=== PATIENT | female | born 1985 | race Two or more races ===

== ENCOUNTER → 2024-12-28 | Outpatient (CLI) | payer OTHER | LOC: M WHC 10:23 | PROVIDERS: ATTEND Obstetrics & Gynecology | DX: O36.5920 Maternal care for other known or suspected poor fetal growth, second trimester, not applicable or unspecified (principal); Z3A.25 25 weeks gestation of pregnancy ==

== ENCOUNTER → 2025-01-04 | Outpatient (CLI) | payer OTHER | LOC: M RAD 09:43 | PROVIDERS: ATTEND Obstetrics & Gynecology | DX: O36.5920 Maternal care for other known or suspected poor fetal growth, second trimester, not applicable or unspecified (principal); Z3A.26 26 weeks gestation of pregnancy ==

== ENCOUNTER → 2025-01-11 | Outpatient (CLI) | payer OTHER | LOC: M RAD 15:10 | PROVIDERS: ATTEND Obstetrics & Gynecology | DX: O36.5930 Maternal care for other known or suspected poor fetal growth, third trimester, not applicable or unspecified (principal); Z3A.27 27 weeks gestation of pregnancy ==

== ENCOUNTER → 2025-01-25 | Outpatient (CLI) | payer OTHER | LOC: M RAD 10:58 | PROVIDERS: ATTEND Obstetrics & Gynecology | DX: O28.8 Other abnormal findings on antenatal screening of mother (principal); Z3A.00 Weeks of gestation of pregnancy not specified ==

== ENCOUNTER → 2025-02-03 | Outpatient (CLI) | payer OTHER | LOC: M WHC 10:55 | PROVIDERS: ATTEND Obstetrics & Gynecology | DX: O36.5990 Maternal care for other known or suspected poor fetal growth, unspecified trimester, not applicable or unspecified (principal) ==

== ENCOUNTER → 2025-02-10 | Outpatient (CLI) | payer OTHER ==
[~2025-02-10] MED LIST: ASPI81TA26 PO; PNV1TABL16 PO; ZYRTTAB8 PO
== END ==
LOC: M WHC 10:56
PROVIDERS: ATTEND Obstetrics & Gynecology
DX: O36.5990 Maternal care for other known or suspected poor fetal growth, unspecified trimester, not applicable or unspecified (principal); Z3A.00 Weeks of gestation of pregnancy not specified

== ENCOUNTER → 2025-02-24 | Outpatient (CLI) | payer OTHER | LOC: M WHC 10:51 | PROVIDERS: ATTEND Obstetrics & Gynecology | DX: O34.211 Maternal care for low transverse scar from previous cesarean delivery (principal); O34.218 Maternal care for other type scar from previous cesarean delivery; O99.213 Obesity complicating pregnancy, third trimester; E66.9 Obesity, unspecified; Z3A.34 34 weeks gestation of pregnancy ==

== ENCOUNTER → 2025-03-03 | Outpatient (CLI) | payer OTHER ==
[~2025-03-03] MED LIST changes: +COLA100C5 PO; +IBUP80TA PO; +PERCOCET PO; +VITA250T27 PO
== END ==
LOC: M WHC 11:01
PROVIDERS: ATTEND Obstetrics & Gynecology
DX: O36.5990 Maternal care for other known or suspected poor fetal growth, unspecified trimester, not applicable or unspecified (principal)
CPT/HCPCS: 76815; 76819; 76820; G0463

== ENCOUNTER → 2025-03-10 | Outpatient (CLI) | payer OTHER ==
[~2025-03-10] MED LIST changes: -COLA100C5 PO; -IBUP80TA PO; -PERCOCET PO
== END ==
LOC: M WHC 11:00
PROVIDERS: ATTEND Obstetrics & Gynecology
DX: O36.5990 Maternal care for other known or suspected poor fetal growth, unspecified trimester, not applicable or unspecified (principal)

== ENCOUNTER → 2025-03-14 | Outpatient (REF) | payer OTHER ==
[~2025-03-14] MED LIST changes: +COLA100C5 PO; +IBUP80TA PO; +PERCOCET PO
== END ==
LOC: M PLALAB 10:19
PROVIDERS: ATTEND Obstetrics & Gynecology
DX: Z34.80 Encounter for supervision of other normal pregnancy, unspecified trimester (principal)

== ENCOUNTER 2025-03-17 05:03 | Inpatient (IN) | payer OTHER ==
[~2025-03-17] VITALS: Ht 149.9 cm; Wt 78.2 kg
[2025-03-17] VITALS (8 sets, daily range): BP systolic 106–122; BP diastolic 53–68; TEMP 97.7; O2SAT 98–100
[~2025-03-17 05:03] MED LIST changes: -COLA100C5 PO; -IBUP80TA PO; -PERCOCET PO
[2025-03-17] MEDS: LR 1,000 ML IV SCH (05:35)
[2025-03-17] MEDS: LACTATED RINGER'S 1000 ML IV STA (05:57)
[2025-03-17 06:41] LABS: PLATELET COUNT, AUTOMATED 257 10^3/uL (150-450)
[2025-03-17] MEDS: BICITRA 30 ML SOLN UDC PO ONE (07:14)
[2025-03-17] MEDS: ceFAZolin SODIUM 2 GM in DEXTROSE 5% (D5W) ADV/MINI-BAG 50 ML IV ONE (07:14)
[2025-03-17] MEDS ORDERED: MORPHINE PRES-FREE INJ 10 MG/10 ML VIAL As Ordered ONE (07:21)
[2025-03-17] MEDS ORDERED: OXYTOCIN INJ 10UNITS/ML 1ML VIAL As Ordered ONE (07:21)
[2025-03-17] MEDS ORDERED: OXYTOCIN 30UNITS IN 0.9% NaCl 500ML IV BAG As Ordered ONE (07:21)
[2025-03-17 07:22] LABS: HIV 1&2 SCREEN NEGATIVE (NEGATIVE)
[2025-03-17] MEDS ORDERED: ONDANSETRON 4MG 2ML VIAL As Ordered ONE (07:24)
[2025-03-17] MEDS ORDERED: dexAMETHasone 4 MG/ML 1 ML VIAL As Ordered ONE (07:24)
[2025-03-17 07:29] LABS: HEPATITIS C VIRUS ABY INDEX < 0.02 INDEX (<0.8)
[2025-03-17] MEDS ORDERED: ACETAMINOPHEN 1000MG/100ML IV BAG As Ordered ONE (08:10)
[2025-03-17] MEDS ORDERED: PHENYLephrine 500MCG 5ML (100MCG/ML) SYRINGE As Ordered ONE (08:10)
[2025-03-17] MEDS ORDERED: KETOROLAC 30 MG/ML 1 ML VIAL As Ordered ONE (08:24)
[2025-03-17] MEDS: PRENATAL VITAMINS CHEWABLE TABLET PO SCH (09:00)
[2025-03-17] MEDS: FERROUS SULFATE 325 MG TAB PO SCH (09:00)
[2025-03-17] MEDS ORDERED: ONDANSETRON 4MG 2ML VIAL IV PRN ×2 (09:05→09:30)
[2025-03-17] MEDS ORDERED: SIMETHICONE 80MG CHEW TAB PO PRN (09:05)
[2025-03-17] MEDS ORDERED: METHYLERGONOVINE MALEATE 0.2 MG/ML 1 ML VIAL IM PRN (09:05)
[2025-03-17] MEDS ORDERED: ANUSOL HC CREAM 30 GM TOP PRN (09:05)
[2025-03-17] MEDS ORDERED: RHOGAM 300MCG (1500IU) INJ IM SCH (09:05)
[2025-03-17] MEDS ORDERED: CALCIUM CARBONATE 500 MG CHEW U/D PO PRN (09:05)
[2025-03-17] MEDS ORDERED: IBUP80TA PO (09:27)
[2025-03-17] MEDS ORDERED: COLA100C5 PO (09:27)
[2025-03-17] MEDS ORDERED: PERCOCET PO (09:27)
[2025-03-17] MEDS ORDERED: diphenhydrAMINE 50 MG/ML VIAL IV PRN (09:30)
[2025-03-17] MEDS ORDERED: NALOXONE INJ 0.4 MG/1 ML VIAL IV PRN ×2 (09:30)
[2025-03-17] MEDS ORDERED: **NOTE PATIENT COMMENT** MISC XX SCH (09:30)
[2025-03-17] MEDS: OXYTOCIN DRIP 30 UNITS in IV 1 EA IV SCH (09:35)
[2025-03-17] MEDS: MORPHINE 4 MG/ML 1 ML VIAL IV PRN (09:40)
[2025-03-17] MEDS: SLF 3 ML SYR IV SCH (10:00)
[2025-03-17] MEDS: PERCOCET 5MG/325MG TAB PO PRN ×2 (12:00→18:03)
[2025-03-17] MEDS: KETOROLAC 30 MG/ML 1 ML VIAL IV SCH (14:35)
[2025-03-17] MEDS: DOCUSATE SODIUM 100 MG CAPSULE PO SCH (21:02)
[2025-03-17] MEDS: ACETAMINOPHEN 500 MG TAB PO PRN (21:02)
[2025-03-18 02:09] VITALS: BP 100/58; O2SAT 97
[2025-03-18 06:04] VITALS: BP 111/63; O2SAT 97
[2025-03-18 08:10] LABS: PLATELET COUNT, AUTOMATED 193 10^3/uL (150-450)
[2025-03-18 10:00] VITALS: BP 113/64; O2SAT 98
[2025-03-18] MEDS: IBUPROFEN 800 MG TAB PO SCH (11:17)
[2025-03-18 14:00] VITALS: BP 110/64; O2SAT 98
[2025-03-18 18:00] VITALS: BP 138/69; O2SAT 99
[2025-03-18 22:00] VITALS: BP 117/60; O2SAT 97
[2025-03-19 02:00] VITALS: BP 118/72; O2SAT 98
[2025-03-19 06:00] VITALS: BP 112/63; O2SAT 100
[2025-03-19] MEDS ORDERED: MEASLES,MUMPS,RUBELLA VACCINE INJ (MMR-II) SC.IMMUN ONE (09:00)
== END 2025-03-19 13:15 | disposition home or self-care (01) | DRG 773 ==
LOC: M LDI 05:03 → PREOBSVTOIN 05:04 → M OBS 10:35
PROVIDERS: ADMIT Obstetrics & Gynecology; ATTEND Obstetrics & Gynecology
PROC: 10D00Z1 Extraction of Products of Conception, Low, Open Approach (ICD-10-PCS; principal; 2025-03-17 07:30)
DX: O34.211 Maternal care for low transverse scar from previous cesarean delivery (principal); Z37.0 Single live birth; Z3A.37 37 weeks gestation of pregnancy; O09.523 Supervision of elderly multigravida, third trimester; N99.4 Postprocedural pelvic peritoneal adhesions; O36.5990 Maternal care for other known or suspected poor fetal growth, unspecified trimester, not applicable or unspecified